=== PATIENT | female | born 1995 | race Caucasian/White ===

== ENCOUNTER 2018-04-10 23:50 | Day surgery (SDC) | payer OTHER ==
[2018-04-11 00:39] VITALS: BMI 24.0
--- NOTE | 2018-04-11 01:39 | PRG ---
DATE OF SERVICE: 04/11/2018 TIME OF SERVICE: 0100 hours. PRESENTING COMPLAINT: Contractions at 32 weeks. HISTORY OF PRESENT ILLNESS: Ms. Ramey is a 23-year-old, 3, para 2, at 32 weeks by EDC, who presents complaining of contractions. She reports that they are occurring off and on for a day. She is also complaining of vaginal discharge that she has had for months. She denies rupture of membranes, bleeding, and reports an active fetus. She sees Dr. Jacob Ny. 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 Blood type A positive, antibody negative. Pap negative. Rubella immune. VDRL nonreactive. Hepatitis B, GC and chlamydia negative. PAST MEDICAL HISTORY: Denies. PAST SURGICAL HISTORY: Denies. ALLERGIES: CAT DANDER. MEDICATIONS: vitamins. SOCIAL HISTORY: Denies tobacco, alcohol, or IV drug use. FAMILY HISTORY: Noncontributory. REVIEW OF SYSTEMS: Noncontributory. PHYSICAL EXAMINATION: GENERAL: White female, resting comfortably. VITAL SIGNS: Temperature 98.5, respirations 18, pulse 87, and blood pressure 118/72. HEENT: Within normal limits. LUNGS: Clear to auscultation bilaterally. HEART: Regular rate and rhythm. BREASTS: No masses bilaterally. ABDOMEN: Soft and nontender without palpable contractions. FHTs are 140s. Vulva without lesions. Vagina, slight physiologic discharge. Cervix closed, long and high, cephalic. EXTREMITIES: No clubbing, cyanosis, or edema. heart rate monitoring is carried out for greater than 30 minutes. No contractions were noted. Category I heart rate tracing was noted. IMPRESSION: No evidence of labor with physiologic leukorrhea noted. PLAN: Reassurance. Keep scheduled followup with Dr. Ny. ER precautions. Job ID: [id number]
== END 2018-04-11 01:10 | disposition home or self-care (01) ==
LOC: L&D/OP 23:50
PROVIDERS: ATTEND Obstetrics & Gynecology
DX: O47.1 False labor at or after 37 completed weeks of gestation (principal); O99.89 Other specified diseases and conditions complicating pregnancy, childbirth and the puerperium; N89.8 Other specified noninflammatory disorders of vagina; Z3A.32 32 weeks gestation of pregnancy; Z91.048 Other nonmedicinal substance allergy status
CPT/HCPCS: 99282

== ENCOUNTER 2018-05-12 23:56 | Day surgery (SDC) | payer OTHER ==
--- NOTE | 2018-05-13 00:27 | PDOC.LDHP ---
Labor and Delivery H&P Chief complaint: other (pubic pain) HPI: Patient of Dr Ny Here for pubic bone "pain" No CTX HPI: 23 yo W (some HX of some children being removed from her, and discrepancy in her GsPs in the record due to this) here for pubic pressure. No Dysuria, no VB, no ROM, no recent trauma. stated "maybe we should induce her". Review of systems: complete ROS performed and as per HPI Current gestational age (weeks): 37 (1 day) Dating criteria: last menstrual period Grav: 5 Para: 4 OB History Details: SVDs X 4 Current complications: none Abnormal US findings: No Current medications: pre-angela vitamins Previous surgical history: none Allergies/Adverse Reactions: Allergies Allergy/AdvReac Type Severity Reaction Status Date / Time cat dander Allergy Verified 04/11/18 00:47 Social history: none - Physical Exam Vital signs reviewed and normal: yes (114/70) General: NAD Heart: RRR Lungs: CTAB Abdomen: gravid Extremeties: no edema FHT: category 1 [place] contractions every: none - Vaginal Exam cm dilated: 1 (cep[halic on leoplolds) Effacement: 50% Station: -2 - Assessment Early term (37 weeks 1 day) with likely discomforts of . No HX of UTI sxs, VB, ROM, or CTX. Good FM. Same exam as per report in office last check. - Plan Plan: observation in L&D (My exam finds her in NAD and no evidence pain on suprapublic palpation. No evidence labor at this time. I do not supect UTI. Strop reactive. OK for outpatient care.)
[2018-05-13 00:38] VITALS: BP 114/70; TEMP 98.3; BMI 25.7
== END 2018-05-13 00:53 | disposition home or self-care (01) ==
LOC: L&D/OP 23:56
PROVIDERS: ATTEND Obstetrics & Gynecology
DX: O99.89 Other specified diseases and conditions complicating pregnancy, childbirth and the puerperium (principal); R10.2 Pelvic and perineal pain; Z3A.37 37 weeks gestation of pregnancy
CPT/HCPCS: 99283

== ENCOUNTER 2018-05-29 00:30 | Day surgery (SDC) | payer OTHER ==
[2018-05-29 01:15] VITALS: BP 116/72; TEMP 98.2; BMI 26.9
[2018-05-29 01:47] LABS: Amnisure Internal Control QC ACCEPTABLE (ACCEPTABLE)
[2018-05-29 01:57] LABS: Amnisure Test No Membranes Rupture (No Rupture)
--- NOTE | 2018-05-29 02:10 | PDOC.LDHP ---
Labor and Delivery H&P Chief complaint: contractions, loss of fluid HPI: 23 yo @ 39.3 by LMP c/w 2nd tri sono presents for painful contractions starting at approx 2300 last night. Pt also reports "leaking fluid" which started after arrival to L&D. She reports pos movement, denies vaginal bleeding. She has not had any complications with this . All documented previous deliveries were at term and vaginal. Of note, nursing staff reports encounter with pt on previous in which she was told that the pt has had 4 total children but she had lost custody of 2 children to their biological father; circumstances of children being taken from mother are unclear as pt only reports this is her 3rd and her primary OBs notes document this as only her 3rd . Otherwise, pt denies headache, NVDC, cp, sob, changes in vision. Current gestational age (weeks): 39 (+3) Due date: 06/02/18 Dating criteria: last menstrual period, second trimester ultrasound Grav: 3 (See HPI) Para: 2 (See HPI, ? G5) Current complications: none Abnormal US findings: No Current medications: none Previous surgical history: none Allergies/Adverse Reactions: Allergies Allergy/AdvReac Type Severity Reaction Status Date / Time No Known Allergies Allergy Verified 05/29/18 00:59 Social history: none - Physical Exam Vital signs reviewed and normal: yes General: NAD (Pt noted to have flat affect.) Heart: RRR Lungs: CTAB Abdomen: NTTP Extremeties: trace edema FHT: category 1 (baseline 135 mod variability pos accels, no late or variable decels) [place] contractions every: 5-10 - Vaginal Exam cm dilated: 3 Effacement: 50% Station: -1 - OB Labs Blood type: A RH: positive Antibody Screen: negative HIV: negative RPR: negative HEPSAg: negative 1 hour GCT: negative (114) GBS: negative Rubella: non-immune - Assessment 1) TIUP: contractions - will obs in L&D as contractions have decreased in frequency and severity - amnisure negative and spec exam did not reveal and pooling of fluid or LOF from cervical OS - if pt makes cervical change will admit to L&D for delivery, otherwise re- assess in 2 hours - given questionable ob history and pts flat affect will check UDS, results pending Dispo: stable, monitor on L&d for labor progression and check UDS. - Plan Plan: observation in L&D Addendum - Attending - Attending Attestation Date/Time: 05/29/18 [id number] I personally evaluated the patient and discussed the management with Dr. Kim. I agree with the History, Examination, Assessment and Plan documented above.
[2018-05-29 03:12] LABS: Amphetamine Not Detected (NotDetected); Barbiturates Screen Not Detected (NotDetected); Benzodiazepine Screen Not Detected (NotDetected); Cocaine Metabolite Screen Not Detected (NotDetected); Medtox Control Line Valid? VALID (VALID); Medtox Reader # READER 4; Methadone Not Detected (NotDetected); Methamphetamine Not Detected (NotDetected); Opiate Screen Not Detected (NotDetected); Oxycodone Screen Not Detected (NotDetected); Phencyclidine (PCP) Not Detected (NotDetected); THC/Cannabinoid Screen Not Detected (NotDetected); Tricyclic Screen Not Detected (NotDetected)
--- NOTE | 2018-05-29 03:48 | PDOC.EVN ---
Event Note - Event Note Event Note: Pt cervical check unchanged from previous with cessation of ctx. Cat 1 strip with moderate variability and pos accels, no decels. Spoke with pt and gave return precuations including gush of fluid and contractions occurring every 3- 5min regularly. Pt agreeable. Will DC to home.
== END 2018-05-29 04:02 | disposition home health service (06) ==
LOC: L&D/OP 00:30
PROVIDERS: ATTEND Obstetrics & Gynecology
DX: O47.1 False labor at or after 37 completed weeks of gestation (principal); Z3A.39 39 weeks gestation of pregnancy
CPT/HCPCS: 80306; 84112; 99285

== ENCOUNTER 2018-05-31 05:30 | Inpatient (IN) | payer OTHER ==
--- NOTE | 2018-05-31 00:17 | PDOC.LDHP ---
Labor and Delivery H&P Chief complaint: scheduled induction HPI: 23 at 39 weeks presents for term induction. Patient lives in [place], [place]. Due date: 06/02/18 Grav: 3 Para: 2 Current complications: none, other (Non-Compliance) Current medications: pre-angela vitamins Allergies/Adverse Reactions: Allergies Allergy/AdvReac Type Severity Reaction Status Date / Time No Known Allergies Allergy Verified 05/29/18 00:59 Social history: none - Physical Exam Vital signs reviewed and normal: yes General: NAD, resting Heart: other Lungs: CTAB Abdomen: gravid Extremeties: no edema FHT: category 1 - Assessment L&D Assessment: elective induction at term - Plan Plan: admit to L&D, cervical ripening
[~2018-05-31 05:30] MED LIST: Butorphanol Tartrate 1 MG/ML VIAL SLOW IVP PRN; Carboprost 250 MCG/ML AMP IM PRN; Diphenoxylate HCl/Atropine Tablet PO PRN; Docusate 100 MG CAP PO PRN; HYDROcodone/Acetaminophen 5/325 mg Tablet PO PRN; Ibuprofen 800 MG TAB PO PRN; Lidocaine 1% (PF) 30 ML VIAL SC PRN; Methylergonovine 0.2 MG/ML VIAL IM PRN; Misoprostol 200 MCG TAB PR PRN; NS / Oxytocin 40 units/1000ml 1,000 ML IV PRN; NS w/ Oxytocin 10 units 500 ML IV SCH; Ondansetron PF 4 MG/2 ML Vial IVP PRN; Promethazine HCl 25 MG/ML VIAL IM PRN
[2018-05-31 07:53] VITALS: BMI 26.1
[2018-05-31] MEDS: Lactated Ringer's 1,000 ML IV SCH ×3 (08:00→14:01)
[2018-05-31 08:36] LABS: Hemoglobin 9.2 g/dL (12.0-16.0); Mean Corpuscular HGB CONC 31.1 g/dL (32.0-36.0); Mean Corpuscular Hemoglobin 21.5 pg (27.0-31.0); Mean Corpuscular Volume 69.1 fL (78.0-98.0); Mean Platelet Volume 9.5 fL (7.4-10.4); Platelet Count 232 thou/uL (130-400); RBC Distribution Width 15.7 % (11.5-14.5); Red Blood Cell (RBC) Count 4.29 mill/uL (4.20-5.40); White Blood Cell (WBC) Count 9.8 thou/uL (4.8-10.8)
[2018-05-31] MEDS ORDERED: NS w/ Oxytocin 10 units 500 ML ONE (08:39)
[2018-05-31 09:12] LABS: HBSAg Index 0.25 S/CO (0-0.99); Hep B Surf Ag Non-Reactive S/CO (NonReactive); Syphilis Antibody Nonreactive (Nonreactive); Syphilis Antibody Index 0.04 S/CO (<1.00 Non-Reactive)
[2018-05-31] MEDS ORDERED: Bupivacaine 0.25% HCL 30 ML VIAL ONE (11:11)
[2018-05-31] MEDS ORDERED: Fentanyl 4 mcg/Bup 0.1% Cadd 100 ML ONE (11:55)
[2018-05-31] MEDS ORDERED: Fentanyl 100 MCG/2 ML VIAL ONE (12:08)
[2018-05-31] MEDS ORDERED: Fentanyl 100 MCG/2 ML VIAL EPIDURAL ONE (12:20)
[2018-05-31] MEDS ORDERED: Promethazine HCl 25 MG/ML VIAL IM PRN ×2 (13:14→21:19)
[2018-05-31] MEDS ORDERED: Ondansetron PF 4 MG/2 ML Vial IVP PRN ×2 (13:14→21:19)
[2018-05-31] MEDS ORDERED: Naloxone HCl 0.4 mg/ml Vial IVP PRN ×2 (13:14)
[2018-05-31] MEDS ORDERED: Acetaminophen 325 MG TAB PO PRN (13:14)
[2018-05-31] MEDS ORDERED: diphenhydrAMINE 50 MG/ML VIAL IVP PRN (13:14)
[2018-05-31] MEDS ORDERED: Eucerin (Mineral Oil/Petrolatum,White) 30 gm Jar TOP PRN (13:14)
[2018-05-31] MEDS ORDERED: Lactated Ringer's 500 ML IV PRN (13:14)
[2018-05-31] MEDS ORDERED: ePHEDrine/0.9% NaCl/PF SYRINGE 50 mg/10 ml SLOW IVP PRN (13:14)
[2018-05-31] MEDS ORDERED: Communication Order-Pharmacy FS SCH (13:15)
[2018-05-31] MEDS ORDERED: Fentanyl 4 mcg/Bupivacaine 0.1% Cassette 100 ML EPIDURAL SCH (13:15)
[2018-05-31] MEDS ORDERED: Milk Of Magnesia 30 ML UDCUP PO PRN (21:19)
[2018-05-31] MEDS ORDERED: Benzocaine/Menthol 20-0.5% 60 ML CAN TOP PRN (21:19)
[2018-05-31] MEDS ORDERED: Bisacodyl 10 MG SUPP PR PRN (21:19)
[2018-05-31] MEDS ORDERED: Methylergonovine 0.2 MG/ML VIAL IM PRN (21:19)
[2018-05-31] MEDS ORDERED: HYDROcodone/Acetaminophen 5/325 mg Tablet PO PRN (21:19)
[2018-05-31] MEDS ORDERED: NS / Oxytocin 40 units/1000ml 1,000 ML IV SCH (21:19)
[2018-05-31] MEDS ORDERED: Measles/Mumps/Rubella 10 MCG/0.5 ML VIAL SC ONE (21:19)
[2018-05-31] MEDS ORDERED: Misoprostol 200 MCG TAB VAG PRN (21:19)
[2018-05-31] MEDS ORDERED: diphenhydrAMINE 25 MG CAP PO PRN (21:19)
[2018-05-31] MEDS ORDERED: Zolpidem Tartrate 5 MG TAB PO PRN (21:19)
[2018-05-31] MEDS ORDERED: Preparation H Ointment 28 GM TUBE PR PRN (21:19)
[2018-05-31] MEDS ORDERED: Lanolin Ointment 7 GM TUBE TOP PRN (21:19)
[2018-05-31] MEDS: Docusate Calcium (SURFAK) 240 MG CAP PO SCH (22:37)
[2018-05-31] MEDS: Ibuprofen 800 MG TAB PO SCH (22:37)
[2018-06-01] MEDS: HYDROcodone/Acetaminophen 5/325 mg Tablet PO PRN ×2 (04:08→20:11)
[2018-06-01] MEDS: Ibuprofen 800 MG TAB PO SCH ×3 (05:59→21:38)
[2018-06-01 06:26] LABS: Hemoglobin 8.6 g/dL (12.0-16.0); Mean Corpuscular HGB CONC 30.8 g/dL (32.0-36.0); Mean Corpuscular Volume 71.6 fL (78.0-98.0); Platelet Count 178 thou/uL (130-400); RBC Distribution Width 15.4 % (11.5-14.5); Red Blood Cell (RBC) Count 3.88 mill/uL (4.20-5.40); White Blood Cell (WBC) Count 12.6 thou/uL (4.8-10.8)
[2018-06-01] MEDS ORDERED: Varicella virus, LIVE 0.5 ML VIAL SC ONE (09:00)
[2018-06-01] MEDS ORDERED: Adacel (T-DAP) 0.5 ML SYRINGE IM ONE (09:00)
[2018-06-01] MEDS: Docusate Calcium (SURFAK) 240 MG CAP PO SCH ×2 (09:14→21:38)
[2018-06-01] MEDS: Prenatal Vitamin 1 TAB PO SCH (09:14)
[2018-06-01] MEDS: Ferrous Sulfate 325 MG TAB PO SCH ×2 (09:14→17:59)
--- NOTE | 2018-06-01 20:58 | PDOC.PP ---
Post Progress Note Post Day #: 1 PO intake tolerated: yes Flatus: yes Ambulation: yes Vital Signs (12 hours) Temp Pulse Resp BP Pulse Ox 06/01/18 17:19 98.0 F 77 16 99/63 99 06/01/18 12:12 98.2 F 75 20 106/67 Weight Weight 162 lb - Physical Examination General: NAD Cardiovascular: no m/r/g, RRR Respiratory: clear to auscultation bilaterally, non-labored breathing Abdominal: + bowel sounds, lochia, no distention Extremities: negative homans (B) Neurological: no gross focal deficits Psychiatric: A&Ox3, normal affect Result Diagrams: 06/01/18 06:08 Additional Labs: Post Labs Blood Type A POSITIVE 05/31/18 09:06 Hep Bs Antigen Non-Reactive S/CO (NonReactive) 05/31/18 07:56
[2018-06-01 21:47] VITALS: TEMP 97.8
--- NOTE | 2018-06-02 01:52 | DN ---
DATE OF PROCEDURE: 05/31/2018 PREOPERATIVE DIAGNOSIS: Intrauterine at 39 weeks and 4 days with a term induction of labor. POSTOPERATIVE DIAGNOSIS: Intrauterine at 39 weeks and 4 days with a term induction of labor. PROCEDURES: Spontaneous vaginal delivery over intact perineum. FINDINGS: Viable male , weighing 3643 g or 8 pounds 0 ounces, Apgars 8 and 9. QUANTITATIVE BLOOD LOSS: 154 g. COMPLICATIONS: None. PROCEDURE IN DETAIL: The patient presented to [facility] where she was admitted to the labor and delivery service. The patient underwent a normal and uneventful labor with normal cervical dilatation until she was found to be completely dilated. She was then allowed to push and was able to bring the baby down and delivered the baby in a vertex presentation without difficulties. Once the head delivered in occiput anterior position, the shoulders followed spontaneously along with the rest of the baby's body. Once out the baby's mouth and nose were bulb suctioned. The cord was clamped and cut and baby was handed to waiting attendants. Cord blood was collected. Gentle fundal massage was performed and the placenta delivered intact without problems. Hemostasis was assured. Quantitative blood loss was calculated. Inspection of the cervix, vaginal vault, and perineum did not reveal any lacerations needing suturing. Once again, hemostasis was within normal limits and the patient was allowed to recover in the labor and delivery room. Baby went to nursery. Job ID: [id number]
[2018-06-02] MEDS: Ibuprofen 800 MG TAB PO SCH (05:58)
[2018-06-02 07:59] VITALS: BP 111/70
[2018-06-02] MEDS: Ferrous Sulfate 325 MG TAB PO SCH (08:05)
[2018-06-02] MEDS: Prenatal Vitamin 1 TAB PO SCH (08:05)
[2018-06-02] MEDS: Docusate Calcium (SURFAK) 240 MG CAP PO SCH (08:05)
== END 2018-06-02 11:45 | disposition home or self-care (01) | DRG 807 ==
LOC: L&D 07:22 → 3SW 22:11
PROVIDERS: ADMIT Obstetrics & Gynecology; ATTEND Obstetrics & Gynecology
PROC: 10E0XZZ Delivery of Products of Conception, External Approach (ICD-10-PCS; principal; 2018-05-31)
DX: O80 Encounter for full-term uncomplicated delivery (principal); Z37.0 Single live birth; Z3A.39 39 weeks gestation of pregnancy
CPT/HCPCS: 36415; 51702; 85027; 86780; 86850; 86900; 86901; 87340; 90707; J3010; S0020